=== PATIENT | female | born 1985 | race Caucasian/White ===

== ENCOUNTER 2017-12-23 09:40 | Emergency (ER) | payer MEDICARE, MEDICAID ==
[~2017-12-23] VITALS: Ht 167.6 cm; Wt 89.0 kg
[~2017-12-23 09:40] MED LIST: ACET-2119 PO; CLIN-80 PO; NOTE; ONDA4TAB6 PO; ONDA8TAB9 PO
[2017-12-23 09:46] VITALS: BP 130/74
[2017-12-23] MEDS ORDERED: LIDOcaine 1.5% w/epinephrine 1:200,000 5ml ampul IJ ONE (11:00)
== END 2017-12-23 11:13 | disposition left against medical advice (07) ==
LOC: ER 09:41
DX: L02.11 Cutaneous abscess of neck (principal); K21.9 Gastro-esophageal reflux disease without esophagitis; G89.29 Other chronic pain; F12.10 Cannabis abuse, uncomplicated; F15.10 Other stimulant abuse, uncomplicated; Z98.890 Other specified postprocedural states; Z79.899 Other long term (current) drug therapy
CPT/HCPCS: 99284; A6449; J3490

== ENCOUNTER 2018-03-19 23:27 | Emergency (ER) | payer MEDICARE, MEDICAID ==
[~2018-03-19] VITALS: Ht 167.6 cm; Wt 86.0 kg
[~2018-03-19 23:27] MED LIST changes: -CLIN-80 PO; +CLIN300C85 PO
[2018-03-19 23:31] VITALS: BP 140/119
[2018-03-19] MEDS ORDERED: ketorolac tromethamine 15mg/ml inj. IM ONE (23:55)
[2018-03-19] MEDS ORDERED: ondansetron 4mg rapidly disintigrating tab PO ONE (23:55)
[2018-03-19] MEDS ORDERED: morphine 4 MG/ML inj SYRINge IM ONE (23:55)
[2018-03-20] MEDS ORDERED: HYDR-3965 PO (00:38)
[2018-03-20] MEDS ORDERED: IBUP-1986 PO (00:38)
== END 2018-03-20 01:47 | disposition home or self-care (01) ==
LOC: ER 23:27
DX: S43.102A Unspecified dislocation of left acromioclavicular joint, initial encounter (principal); S40.012A Contusion of left shoulder, initial encounter; F15.10 Other stimulant abuse, uncomplicated; I49.9 Cardiac arrhythmia, unspecified; K21.9 Gastro-esophageal reflux disease without esophagitis; G89.29 Other chronic pain; F12.90 Cannabis use, unspecified, uncomplicated; Z86.14 Personal history of Methicillin resistant Staphylococcus aureus infection; Z98.890 Other specified postprocedural states; Z88.6 Allergy status to analgesic agent; Z79.899 Other long term (current) drug therapy; V18.4XXA Pedal cycle driver injured in noncollision transport accident in traffic accident, initial encounter; Y93.89 Activity, other specified; Y92.89 Other specified places as the place of occurrence of the external cause; Y99.8 Other external cause status
CPT/HCPCS: 71046; 73030; 96372; 99284; A4565; J1885; J2270; 29105

== ENCOUNTER 2018-10-22 00:40 | Emergency (ER) | payer MEDICAID, MEDICARE, OTHER ==
[~2018-10-22] VITALS: Ht 167.6 cm; Wt 90.9 kg
[~2018-10-22 00:40] MED LIST changes: +CLIN-96 PO; -CLIN300C85 PO; +IBUP-1986 PO
[2018-10-22 00:43] VITALS: BP 140/102
[2018-10-22] MEDS ORDERED: TETanus/Pertussis (Acell)/Diphther VAC/PF (Tdap-Adult) 0.5ml syringe IM ONE (01:05)
[2018-10-22] MEDS ORDERED: LIDOcaine 1% w/epiNEPHrine 1:200,000 30ml vial IM ONE (01:05)
[2018-10-22] MEDS ORDERED: cephalexin 250mg capsule PO ONE (03:05)
== END 2018-10-22 03:28 ==
LOC: ER 01:45
DX: S51.812A Laceration without foreign body of left forearm, initial encounter (principal); I49.9 Cardiac arrhythmia, unspecified; K21.9 Gastro-esophageal reflux disease without esophagitis; G89.29 Other chronic pain; Z86.14 Personal history of Methicillin resistant Staphylococcus aureus infection; Z98.890 Other specified postprocedural states; Z88.6 Allergy status to analgesic agent; Z79.899 Other long term (current) drug therapy; Y28.8XXA Contact with other sharp object, undetermined intent, initial encounter; Y93.89 Activity, other specified; Y92.89 Other specified places as the place of occurrence of the external cause; Y99.8 Other external cause status
CPT/HCPCS: 12004; 99283; J3490

== ENCOUNTER 2018-11-22 00:07 | Inpatient (IN) | payer OTHER ==
[~2018-11-22] VITALS: Ht 167.6 cm; Wt 90.9 kg
--- NOTE | 2018-11-22 01:00 | NUR ---
CALL TO POISON CONTROL CONCERNING INGESTED BATTERY. PER POISON CONTROL. "ONLY CONCERN WILL BE OBSTRUCTION." NOT THE CONTENTS OF BATTERY. DR BONNER AND DR. ROBERTS INFORMED.
[2018-11-22] MEDS ORDERED: TETanus/Pertussis (Acell)/Diphther VAC/PF (Tdap-Adult) 0.5ml syringe IM ONE (01:30)
[2018-11-22] MEDS ORDERED: LIDOcaine 1% w/epiNEPHrine 1:200,000 30ml vial IM ONE (01:30)
[2018-11-22] MEDS ORDERED: ondansetron/PF 4mg/2ml inj IV PRN (01:40)
[2018-11-22] MEDS ORDERED: acetaminophen 325mg tablet PO PRN ×2 (01:40→12:15)
[2018-11-22] MEDS ORDERED: mag hydrox/Alum hydrox/simeth 30ml oral suspension PO PRN (01:40)
[2018-11-22] MEDS ORDERED: magnesium hydroxide 30ml (MOM) UD suspension PO PRN (01:40)
[2018-11-22 01:49] LABS: CLARITY,URINE CLEAR (Clear); COLOR,URINE YELLOW (Yellow); GLUCOSE, URINE NEGATIVE (Neg); KETONES,URINE NEGATIVE (Neg); LEUKOCYTE ESTERASE ,URINE NEGATIVE (Neg); NITRITES, URINE NEGATIVE (Neg); OCCULT BLOOD,URINE NEGATIVE (Neg); PH,URINE 6.5 (4.8-8.0); PROTEIN,URINE NEGATIVE (Neg); UROBILINOGEN,URINE 0.2 E.U/dL (0.2-1.0)
[2018-11-22 01:50] LABS: UA COLLECTION TYPE VOIDED
[2018-11-22 01:56] LABS: BASOPHILS # (AUTO) 0.1 X10'3 (0-0.2); BASOPHILS % (AUTO) 1.5 % (0-1); EOSINOPHILS # (AUTO) 0.1 X10'3 (0-0.9); EOSINOPHILS % (AUTO) 1.5 % (0-6); HEMATOCRIT 37.9 % (35.0-45.0); HEMOGLOBIN 12.1 g/dl (12.0-16.0); LYMPHOCYTES # (AUTO) 1.7 X10'3 (1.1-4.8); LYMPHOCYTES % (AUTO) 28.6 % (21-51); MEAN CORPUSCULAR HEMOGLOBIN 25.1 PG (27.0-31.0); MEAN CORPUSCULAR VOLUME 78.6 FL (78-98); MEAN PLATELET VOLUME 8.9 FL (7.4-10.4); MONOCYTES # (AUTO) 0.3 X10'3 (0-0.9); MONOCYTES % (AUTO) 5.5 % (2-12); NEUTROPHILS # (AUTO) 3.7 X10'3 (1.8-7.7); NEUTROPHILS % (AUTO) 62.9 % (42-75); PLATELET COUNT 248 X10'3 (140-440); RED BLOOD COUNT 4.82 X10'6 (4.20-5.60); RED CELL DISTRIBUTION WIDTH 17.7 % (11.5-14.5); WHITE BLOOD COUNT 5.9 X10'3 (4.5-11.0)
[2018-11-22 02:07] LABS: ALANINE AMINOTRANSFERASE 30 U/L (12-78); ALBUMIN 3.9 G/DL (3.4-5.0); ALBUMIN/GLOBULIN RATIO 0.9 (1.1-1.5); ALKALINE PHOSPHATASE 61 IU/L (46-116); ANION GAP 7 (8-16); ASPARTATE AMINO TRANSFERASE 17 U/L (10-37); BILIRUBIN,TOTAL 0.2 MG/DL (0.1-1.0); BLOOD UREA NITROGEN 15 MG/DL (7-18); BUN/CREATININE RATIO 19.2 (6.6-38.0); CALCIUM 9.4 MG/DL (8.5-10.1); CHLORIDE 105 MMOL/L (99-107); CREATININE 0.78 MG/DL (0.40-0.90); GLUCOSE 90 MG/DL (70-104); POTASSIUM 4.1 MMOL/L (3.5-5.1); SODIUM 139 MMOL/L (135-145); TOTAL CARBON DIOXIDE 26.8 MMOL/L (24-32); TOTAL PROTEIN 8.1 G/DL (6.4-8.2); eGFR 85 ML/MIN
[2018-11-22 02:09] LABS: PARTIAL THROMBOPLASTIN TIME 23 SECONDS (22-32); PROTHROMBIN TIME 10.2 SECONDS (9.0-12.0)
[2018-11-22] MEDS: mag hydrox/Alum hydrox/simeth 30ml oral suspension PO SCH ×4 (02:18→21:24)
--- NOTE | 2018-11-22 02:19 | NUR ---
tETANUS NOT ADMINISTERED; PT REPORTS VACCINATION WITHIN PAST 2 MONTHS.
--- NOTE | 2018-11-22 03:01 | NUR ---
Dr Adam engaged in laceration suture/repair. GEETA Li (#[id number]) bedside. pT PARTIALLY HAND CUFFED.
--- NOTE | 2018-11-22 04:30 | NUR ---
received report from adrian valle rn. pt to floor via wheelchair accompanied by adrian and 2 security guards. tele put on pt. water given. pt. handcuffed to bed. will continue to monitor.
[2018-11-22 04:34] VITALS: BP 121/84
--- NOTE | 2018-11-22 06:20 | NUR ---
Problems reprioritized. Patient report given, questions answered & plan of care reviewed with INNA Pena. Addendum: 11/22/18 at 0620 by Cassie Das RN Amended: Links added.
[2018-11-22 07:00] VITALS: BP 119/70
--- NOTE | 2018-11-22 07:00 | NUR ---
Patient in room [facility]. I have received report from Cassie and had the opportunity to ask questions and assume patient care. Addendum: 11/22/18 at 0923 by Becky Montiel RN Amended: Links added.
[2018-11-22] MEDS: famotidine 20mg tablet PO SCH ×2 (07:28→21:23)
[2018-11-22] MEDS: enoxaparin 40mg/0.4ml syringe SQ SCH (07:29)
[2018-11-22 12:00] VITALS: BP 115/70
[2018-11-22] MEDS ORDERED: OLAN10TA3 PO (12:03)
[2018-11-22] MEDS ORDERED: OLAN5TAB3 PO (12:03)
[2018-11-22] MEDS ORDERED: BUSP10TA11 PO ×2 (12:03)
[2018-11-22] MEDS ORDERED: PARO-62 PO (12:05)
[2018-11-22] MEDS ORDERED: TRAZ-219 PO (12:05)
--- NOTE | 2018-11-22 18:28 | NUR ---
Report to INNA Marrufo.
[2018-11-22] MEDS: traMADol 50MG tablet PO PRN (18:59)
[2018-11-22 19:00] VITALS: BP 118/60
[2018-11-22] MEDS: ibuprofen tablet 400 MG TABLET PO PRN (21:22)
[2018-11-22] MEDS: traZODone 50mg tablet PO SCH (21:24)
[2018-11-22] MEDS: olanzapine 10mg tablet PO SCH (21:24)
[2018-11-22] MEDS: busPIRone 5mg tablet PO SCH (21:24)
[2018-11-23] VITALS: BP 97/54
[2018-11-23] MEDS: mag hydrox/Alum hydrox/simeth 30ml oral suspension PO SCH ×4 (01:34→20:22)
[2018-11-23] MEDS: traMADol 50MG tablet PO PRN (01:35)
--- NOTE | 2018-11-23 06:20 | NUR ---
Patient in room [facility]. I have received report from INNA Marrufo and had the opportunity to ask questions and assume patient care.
[2018-11-23 07:30] VITALS: BP 108/48
[2018-11-23] MEDS: famotidine 20mg tablet PO SCH ×2 (08:01→20:22)
[2018-11-23] MEDS: OLANZAPINE 5 MG TABLET PO SCH (08:01)
[2018-11-23] MEDS: PARoxetine 20mg tablet PO SCH (08:02)
[2018-11-23] MEDS: busPIRone 5mg tablet PO SCH ×2 (08:02→20:22)
[2018-11-23] MEDS: enoxaparin 40mg/0.4ml syringe SQ SCH (08:02)
[2018-11-23] MEDS: ibuprofen tablet 400 MG TABLET PO PRN (08:11)
[2018-11-23 12:00] VITALS: BP 104/43
[2018-11-23] MEDS ORDERED: magnesium hydroxide 30ml (MOM) UD suspension PO ONE (12:05)
--- NOTE | 2018-11-23 18:58 | NUR ---
Problems reprioritized. Patient report given, questions answered & plan of care reviewed with INNA Boothe.
--- NOTE | 2018-11-23 18:59 | NUR ---
Patient in room [facility]. I have received report from ERIN KEITH and had the opportunity to ask questions and assume patient care.
[2018-11-23 20:00] VITALS: BP 115/56
[2018-11-23] MEDS: traZODone 50mg tablet PO SCH (20:22)
[2018-11-23] MEDS: olanzapine 10mg tablet PO SCH (20:22)
[2018-11-24] VITALS: BP 104/49
[2018-11-24] MEDS: traMADol 50MG tablet PO PRN (01:49)
[2018-11-24] MEDS: mag hydrox/Alum hydrox/simeth 30ml oral suspension PO SCH ×4 (01:51→21:13)
--- NOTE | 2018-11-24 06:30 | NUR ---
Problems reprioritized. Patient report given, questions answered & plan of care reviewed with GELACIO RN.
--- NOTE | 2018-11-24 06:40 | NUR ---
Patient in room [facility]. I have received report from Paradise Ghotra RN and had the opportunity to ask questions and assume patient care.
[2018-11-24] MEDS: PARoxetine 20mg tablet PO SCH (07:59)
[2018-11-24] MEDS: famotidine 20mg tablet PO SCH ×2 (07:59→21:12)
[2018-11-24] MEDS: OLANZAPINE 5 MG TABLET PO SCH (07:59)
[2018-11-24] MEDS: enoxaparin 40mg/0.4ml syringe SQ SCH (07:59)
[2018-11-24] MEDS: busPIRone 5mg tablet PO SCH ×2 (07:59→21:11)
[2018-11-24 08:00] VITALS: BP 99/54
[2018-11-24] MEDS: ibuprofen tablet 400 MG TABLET PO PRN (09:00)
[2018-11-24] MEDS ORDERED: lactulose 20gm/30ml cup PO ONE (10:40)
[2018-11-24 10:43] LABS: BASOPHILS # (AUTO) 0.1 X10'3 (0-0.2); BASOPHILS % (AUTO) 1.2 % (0-1); EOSINOPHILS # (AUTO) 0.1 X10'3 (0-0.9); EOSINOPHILS % (AUTO) 2.1 % (0-6); HEMATOCRIT 34.5 % (35.0-45.0); LYMPHOCYTES # (AUTO) 1.6 X10'3 (1.1-4.8); LYMPHOCYTES % (AUTO) 27.3 % (21-51); MEAN CORPUSCULAR HGB CONC 31.8 g/dL (33.0-36.5); MEAN CORPUSCULAR VOLUME 78.8 FL (78-98); MEAN PLATELET VOLUME 9.1 FL (7.4-10.4); MONOCYTES # (AUTO) 0.5 X10'3 (0-0.9); MONOCYTES % (AUTO) 8.2 % (2-12); NEUTROPHILS # (AUTO) 3.5 X10'3 (1.8-7.7); NEUTROPHILS % (AUTO) 61.2 % (42-75); PLATELET COUNT 200 X10'3 (140-440); RED BLOOD COUNT 4.39 X10'6 (4.20-5.60); RED CELL DISTRIBUTION WIDTH 17.6 % (11.5-14.5); WHITE BLOOD COUNT 5.7 X10'3 (4.5-11.0)
[2018-11-24 10:48] LABS: ANION GAP 3 (8-16); BLOOD UREA NITROGEN 34 MG/DL (7-18); BUN/CREATININE RATIO 43.6 (6.6-38.0); CALCIUM 9.1 MG/DL (8.5-10.1); CHLORIDE 106 MMOL/L (99-107); CREATININE 0.78 MG/DL (0.40-0.90); GLUCOSE 98 MG/DL (70-104); POTASSIUM 4.1 MMOL/L (3.5-5.1); SODIUM 137 MMOL/L (135-145); TOTAL CARBON DIOXIDE 28.3 MMOL/L (24-32); eGFR 85 ML/MIN
[2018-11-24 12:00] VITALS: BP 113/63
--- NOTE | 2018-11-24 18:28 | NUR ---
Problems reprioritized. Patient report given, questions answered & plan of care reviewed with Paradise Ghotra RN.
--- NOTE | 2018-11-24 18:30 | NUR ---
Patient in room [facility]. I have received report from GELACIO KEITH and had the opportunity to ask questions and assume patient care.
[2018-11-24 20:00] VITALS: BP 118/64
[2018-11-24] MEDS: olanzapine 10mg tablet PO SCH (21:11)
[2018-11-24] MEDS: traZODone 50mg tablet PO SCH (21:11)
[2018-11-24] MEDS: lactulose 20gm/30ml cup PO SCH (22:32)
[2018-11-25] VITALS: BP 118/70
[2018-11-25] MEDS: lactulose 20gm/30ml cup PO SCH ×4 (02:01→22:09)
[2018-11-25] MEDS: mag hydrox/Alum hydrox/simeth 30ml oral suspension PO SCH ×4 (02:01→22:06)
[2018-11-25] MEDS: traMADol 50MG tablet PO PRN (02:06)
--- NOTE | 2018-11-25 06:20 | NUR ---
Patient in room [facility]. I have received report from Paradise Ghotra RN and had the opportunity to ask questions and assume patient care.
[2018-11-25 06:30] VITALS: BP 108/53
--- NOTE | 2018-11-25 06:30 | NUR ---
Problems reprioritized. Patient report given, questions answered & plan of care reviewed with MAGGIE RN.
[2018-11-25] MEDS: busPIRone 5mg tablet PO SCH ×2 (08:21→22:05)
[2018-11-25] MEDS: OLANZAPINE 5 MG TABLET PO SCH (08:22)
[2018-11-25] MEDS: PARoxetine 20mg tablet PO SCH (08:22)
[2018-11-25] MEDS: enoxaparin 40mg/0.4ml syringe SQ SCH (08:22)
[2018-11-25] MEDS: famotidine 20mg tablet PO SCH ×2 (08:22→22:05)
[2018-11-25 11:00] VITALS: BP 106/58
--- NOTE | 2018-11-25 18:10 | NUR ---
Problems reprioritized. Patient report given, questions answered & plan of care reviewed with Paradise Ghotra RN.
--- NOTE | 2018-11-25 18:30 | NUR ---
Patient in room [facility]. I have received report from MAGGIE KEITH and had the opportunity to ask questions and assume patient care.
[2018-11-25 20:00] VITALS: BP 140/65
[2018-11-25] MEDS: traZODone 50mg tablet PO SCH (22:05)
[2018-11-25] MEDS: olanzapine 10mg tablet PO SCH (22:05)
[2018-11-26] VITALS: BP 122/70
[2018-11-26] MEDS: mag hydrox/Alum hydrox/simeth 30ml oral suspension PO SCH ×3 (01:57→14:00)
[2018-11-26] MEDS: ibuprofen tablet 400 MG TABLET PO PRN (01:58)
[2018-11-26] MEDS: lactulose 20gm/30ml cup PO SCH ×3 (02:00→14:00)
--- NOTE | 2018-11-26 06:10 | NUR ---
Patient in room [facility]. I have received report from Paradise Ghotra RN and had the opportunity to ask questions and assume patient care.
--- NOTE | 2018-11-26 06:15 | NUR ---
Problems reprioritized. Patient report given, questions answered & plan of care reviewed with MYKE KEITH.
[2018-11-26 06:30] VITALS: BP 114/71
[2018-11-26] MEDS: busPIRone 5mg tablet PO SCH (08:31)
[2018-11-26] MEDS: PARoxetine 20mg tablet PO SCH (08:32)
[2018-11-26] MEDS: enoxaparin 40mg/0.4ml syringe SQ SCH (08:32)
[2018-11-26] MEDS: famotidine 20mg tablet PO SCH (08:32)
[2018-11-26] MEDS: OLANZAPINE 5 MG TABLET PO SCH (08:32)
[2018-11-26 11:30] VITALS: BP 109/55
[2018-11-26] MEDS ORDERED: CIPR-230 PO (14:27)
[2018-11-26] MEDS ORDERED: METR-159 PO (14:27)
--- NOTE | 2018-11-26 14:45 | NUR ---
BROOKS completed. Awaiting police officers for transport back to [facility] residential.
--- NOTE | 2018-11-26 15:35 | NUR ---
DC inst provided to pt. IV DC'd, tip intact. All belongings sent w/pt. [employer] records management officer & guard escorted pt out of hospital w/pt shackled.
== END 2018-11-26 15:35 | DRG 395 ==
LOC: ER 00:08 → OBSVTOIN 01:39 → ED HOLD 01:39 → EEVIPCON 01:39 → SUR 3N 04:15 → UNDODISIN 11-26 15:35
PROVIDERS: ADMIT Family Medicine; ATTEND Family Medicine
PROC: 0HQEXZZ Repair Left Lower Arm Skin, External Approach (ICD-10-PCS; principal; 2018-11-22)
PROC: 0HQEXZZ Repair Left Lower Arm Skin, External Approach (ICD-10-PCS; 2018-11-22)
DX: T18.9XXA Foreign body of alimentary tract, part unspecified, initial encounter (principal); F25.9 Schizoaffective disorder, unspecified; F31.9 Bipolar disorder, unspecified; K21.9 Gastro-esophageal reflux disease without esophagitis; K52.9 Noninfective gastroenteritis and colitis, unspecified; F41.9 Anxiety disorder, unspecified; G89.29 Other chronic pain; M54.9 Dorsalgia, unspecified; F17.210 Nicotine dependence, cigarettes, uncomplicated; S51.012A Laceration without foreign body of left elbow, initial encounter; S51.812A Laceration without foreign body of left forearm, initial encounter; X83.8XXA Intentional self-harm by other specified means, initial encounter; Y93.89 Activity, other specified; Y92.89 Other specified places as the place of occurrence of the external cause; Y99.8 Other external cause status; Z88.6 Allergy status to analgesic agent; Z87.440 Personal history of urinary (tract) infections; Z79.899 Other long term (current) drug therapy
CPT/HCPCS: 12004; 36415; 71045; 74018; 74176; 80048; 80053; 81003; 85025; 85610; 85730; 86885; 86900; 86901; 87070; 93005; 99285; G0378; J1650; J3490

== ENCOUNTER 2019-04-04 22:40 | Emergency (ER) | payer OTHER ==
[~2019-04-04] VITALS: Ht 167.6 cm; Wt 100.0 kg
[~2019-04-04 22:40] MED LIST changes: +BUSP10TA11 PO; -CLIN-96 PO; -NOTE; +OLAN10TA3 PO; +OLAN5TAB3 PO; -ONDA4TAB6 PO; -ONDA8TAB9 PO; +PARO-62 PO; +TRAZ-219 PO
--- NOTE | 2019-04-04 22:55 | NUR ---
Contacted poison control, recommendations: CBC, CMP, TYLENOL, ASPIRIN,ETOH, TOX SCREEN. KUB to identify location of batteries, recommend removal of batteries if they are in the stomach or above.
[2019-04-04] MEDS ORDERED: LIDOcaine 1% w/epiNEPHrine 1:200,000 30ml vial IM ONE (23:15)
--- NOTE | 2019-04-04 23:44 | NUR ---
Wound irrigated with 500ml NS per order after administration of local anethetic by Bartolo RIDLEY
[2019-04-04 23:45] LABS: BASOPHILS # (AUTO) 0.1 X10'3 (0-0.2); BASOPHILS % (AUTO) 1.2 % (0-1); EOSINOPHILS % (AUTO) 0.7 % (0-6); HEMOGLOBIN 12.7 g/dl (12.0-16.0); LYMPHOCYTES # (AUTO) 1.2 X10'3 (1.1-4.8); LYMPHOCYTES % (AUTO) 19.3 % (21-51); MEAN CORPUSCULAR HEMOGLOBIN 27.3 PG (27.0-31.0); MEAN CORPUSCULAR HGB CONC 33.6 g/dL (33.0-36.5); MEAN CORPUSCULAR VOLUME 81.4 FL (78-98); MEAN PLATELET VOLUME 8.9 FL (7.4-10.4); MONOCYTES # (AUTO) 0.3 X10'3 (0-0.9); MONOCYTES % (AUTO) 5.3 % (2-12); NEUTROPHILS # (AUTO) 4.7 X10'3 (1.8-7.7); NEUTROPHILS % (AUTO) 73.5 % (42-75); PLATELET COUNT 214 X10'3 (140-440); RED BLOOD COUNT 4.66 X10'6 (4.20-5.60); RED CELL DISTRIBUTION WIDTH 16.4 % (11.5-14.5); WHITE BLOOD COUNT 6.3 X10'3 (4.5-11.0)
[2019-04-04 23:50] LABS: URINE HCG NEGATIVE (NEG)
[2019-04-04 23:53] LABS: CLARITY,URINE CLEAR (Clear); COLOR,URINE YELLOW (Yellow); GLUCOSE, URINE NEGATIVE (Neg); KETONES,URINE NEGATIVE (Neg); LEUKOCYTE ESTERASE ,URINE NEGATIVE (Neg); NITRITES, URINE NEGATIVE (Neg); OCCULT BLOOD,URINE NEGATIVE (Neg); PROTEIN,URINE NEGATIVE (Neg); UROBILINOGEN,URINE 0.2 E.U/dL (0.2-1.0)
[2019-04-04 23:59] LABS: ALANINE AMINOTRANSFERASE 20 U/L (12-78); ALBUMIN 3.6 G/DL (3.4-5.0); ALBUMIN/GLOBULIN RATIO 0.8 (1.1-1.5); ALKALINE PHOSPHATASE 57 IU/L (46-116); ANION GAP 10 (8-16); ASPARTATE AMINO TRANSFERASE 7 U/L (10-37); BILIRUBIN,TOTAL 0.2 MG/DL (0.1-1.0); BLOOD UREA NITROGEN 22 MG/DL (7-18); BUN/CREATININE RATIO 24.2 (6.6-38.0); CHLORIDE 108 MMOL/L (99-107); CREATININE 0.91 MG/DL (0.40-0.90); ETHANOL < 0.010 GM/DL (0.0-0.010); GLUCOSE 105 MG/DL (70-104); POTASSIUM 4.2 MMOL/L (3.5-5.1); SODIUM 142 MMOL/L (135-145); TOTAL CARBON DIOXIDE 24.4 MMOL/L (24-32); TOTAL PROTEIN 7.9 G/DL (6.4-8.2); eGFR 71 ML/MIN
[2019-04-04 23:59] LABS: UA COLLECTION TYPE CLN CATCH MIDSTREAM
[2019-04-05 00:02] LABS: ACETAMINOPHEN < 2.0 UG/ML (10-30)
[2019-04-05 00:11] LABS: URINE AMPHETAMINE SCREEN NEGATIVE (Neg); URINE BARBITUATE SCREEN NEGATIVE (Neg); URINE BENZODIAZEPINES SCREEN NEGATIVE (Neg); URINE CANNABINOID SCREEN NEGATIVE (Neg); URINE COCAINE SCREEN NEGATIVE (Neg); URINE METHADONE SCREEN NEGATIVE (Neg); URINE OPIATE SCREEN NEGATIVE (Neg); URINE PHENCYCLIDINE SCREEN NEGATIVE (Neg)
[2019-04-05 00:47] VITALS: BP 111/72
--- NOTE | 2019-04-05 01:04 | NUR ---
peter hicks talking to pt and amanda. pt with stable vs and told Dr. Díaz was consulted, GI, and recommends no intervention and recommends Pt to pass the items on her own.
== END 2019-04-05 01:24 ==
LOC: ER 22:41
DX: S51.812A Laceration without foreign body of left forearm, initial encounter (principal); T18.2XXA Foreign body in stomach, initial encounter; K21.9 Gastro-esophageal reflux disease without esophagitis; G89.29 Other chronic pain; F41.9 Anxiety disorder, unspecified; F31.9 Bipolar disorder, unspecified; F20.9 Schizophrenia, unspecified; F12.90 Cannabis use, unspecified, uncomplicated; F15.90 Other stimulant use, unspecified, uncomplicated; Z98.890 Other specified postprocedural states; Z88.6 Allergy status to analgesic agent; Z79.899 Other long term (current) drug therapy; X78.9XXA Intentional self-harm by unspecified sharp object, initial encounter; Y93.89 Activity, other specified; Y92.89 Other specified places as the place of occurrence of the external cause; Y99.9 Unspecified external cause status
CPT/HCPCS: 12002; 36415; 74018; 80053; 80305; 80320; 80329; 81003; 81025; 85025; 99284

== ENCOUNTER 2019-05-19 02:58 | Emergency (ER) | payer OTHER ==
[~2019-05-19] VITALS: Ht 167.6 cm; Wt 100.0 kg
[2019-05-19] MEDS ORDERED: ondansetron/PF 4mg/2ml inj IV ONE (03:20)
[2019-05-19] MEDS ORDERED: ketorolac trometh. 30mg/ml inj. IV ONE (03:20)
[2019-05-19] MEDS ORDERED: normal saline 1000ml 1,000 ML IV ONE (03:40)
[2019-05-19 03:43] LABS: BASOPHILS # (AUTO) 0.1 X10'3 (0-0.2); BASOPHILS % (AUTO) 1.1 % (0-1); EOSINOPHILS # (AUTO) 0.1 X10'3 (0-0.9); EOSINOPHILS % (AUTO) 1.1 % (0-6); HEMATOCRIT 35.8 % (35.0-45.0); HEMOGLOBIN 11.8 g/dl (12.0-16.0); LYMPHOCYTES # (AUTO) 1.6 X10'3 (1.1-4.8); MEAN CORPUSCULAR HGB CONC 32.9 g/dL (33.0-36.5); MEAN CORPUSCULAR VOLUME 82.1 FL (78-98); MEAN PLATELET VOLUME 9.2 FL (7.4-10.4); MONOCYTES # (AUTO) 0.6 X10'3 (0-0.9); MONOCYTES % (AUTO) 10.5 % (2-12); NEUTROPHILS # (AUTO) 3.5 X10'3 (1.8-7.7); NEUTROPHILS % (AUTO) 60.3 % (42-75); PLATELET COUNT 199 X10'3 (140-440); RED BLOOD COUNT 4.36 X10'6 (4.20-5.60); RED CELL DISTRIBUTION WIDTH 16.4 % (11.5-14.5); WHITE BLOOD COUNT 5.8 X10'3 (4.5-11.0)
[2019-05-19 03:58] LABS: ALANINE AMINOTRANSFERASE 18 U/L (12-78); ALBUMIN 3.8 G/DL (3.4-5.0); ALBUMIN/GLOBULIN RATIO 0.9 (1.1-1.5); ALKALINE PHOSPHATASE 67 IU/L (46-116); ANION GAP 10 (8-16); ASPARTATE AMINO TRANSFERASE 12 U/L (10-37); BILIRUBIN,TOTAL 0.5 MG/DL (0.1-1.0); BLOOD UREA NITROGEN 15 MG/DL (7-18); BUN/CREATININE RATIO 17.2 (6.6-38.0); CHLORIDE 105 MMOL/L (99-107); CREATININE 0.87 MG/DL (0.40-0.90); GLUCOSE 96 MG/DL (70-104); LIPASE 72 U/L (73-393); POTASSIUM 3.4 MMOL/L (3.5-5.1); SODIUM 140 MMOL/L (135-145); TOTAL CARBON DIOXIDE 24.9 MMOL/L (24-32); TOTAL PROTEIN 8.2 G/DL (6.4-8.2); eGFR 75 ML/MIN
[2019-05-19] MEDS ORDERED: iohexol 300mg/ml 100ml inj. ONE (04:29)
[2019-05-19 04:56] LABS: URINE HCG NEGATIVE (NEG)
[2019-05-19 05:00] LABS: CLARITY,URINE CLEAR (Clear); COLOR,URINE YELLOW (Yellow); GLUCOSE, URINE NEGATIVE (Neg); KETONES,URINE TRACE mg/dl (Neg); LEUKOCYTE ESTERASE ,URINE NEGATIVE (Neg); NITRITES, URINE NEGATIVE (Neg); OCCULT BLOOD,URINE NEGATIVE (Neg); PROTEIN,URINE NEGATIVE (Neg); UA COLLECTION TYPE VOIDED; UROBILINOGEN,URINE 0.2 E.U/dL (0.2-1.0)
[2019-05-19 05:08] LABS: URINE AMPHETAMINE SCREEN POSITIVE (Neg); URINE BARBITUATE SCREEN NEGATIVE (Neg); URINE BENZODIAZEPINES SCREEN NEGATIVE (Neg); URINE CANNABINOID SCREEN NEGATIVE (Neg); URINE COCAINE SCREEN NEGATIVE (Neg); URINE METHADONE SCREEN NEGATIVE (Neg); URINE OPIATE SCREEN NEGATIVE (Neg); URINE PHENCYCLIDINE SCREEN NEGATIVE (Neg)
[2019-05-19] MEDS ORDERED: acetaminophen 325mg tablet PO ONE (05:20)
[2019-05-19 05:44] VITALS: BP 144/76
== END 2019-05-19 06:00 ==
LOC: ER 03:00
DX: R10.31 Right lower quadrant pain (principal); F15.929 Other stimulant use, unspecified with intoxication, unspecified; K21.9 Gastro-esophageal reflux disease without esophagitis; G89.29 Other chronic pain; F12.90 Cannabis use, unspecified, uncomplicated; Z98.890 Other specified postprocedural states; Z88.6 Allergy status to analgesic agent; Z79.899 Other long term (current) drug therapy
CPT/HCPCS: 36415; 74177; 80053; 80305; 81003; 81025; 83690; 85025; 85610; 96374; 96375; 99284; J1885; J2405; J7030; Q9967

== ENCOUNTER 2019-07-13 13:10 | Emergency (ER) | payer OTHER ==
[~2019-07-13] VITALS: Ht 167.6 cm; Wt 90.9 kg
--- NOTE | 2019-07-13 13:42 | NUR ---
Dr. Adam at bedside.patient has C collar on.
[2019-07-13] MEDS ORDERED: ondansetron 4mg rapidly disintigrating tab PO ONE (14:00)
--- NOTE | 2019-07-13 14:16 | NUR ---
PATIENT TO CT.
[2019-07-13 14:49] VITALS: BP 128/71
== END 2019-07-13 14:52 ==
LOC: EEVIPCON 13:10 → ER 13:10
DX: S00.03XA Contusion of scalp, initial encounter (principal); M79.641 Pain in right hand; K21.9 Gastro-esophageal reflux disease without esophagitis; G89.29 Other chronic pain; F41.9 Anxiety disorder, unspecified; F31.9 Bipolar disorder, unspecified; F20.9 Schizophrenia, unspecified; F12.90 Cannabis use, unspecified, uncomplicated; F15.90 Other stimulant use, unspecified, uncomplicated; Z98.890 Other specified postprocedural states; Z86.14 Personal history of Methicillin resistant Staphylococcus aureus infection; Z88.6 Allergy status to analgesic agent; Z79.899 Other long term (current) drug therapy; W01.10XA Fall on same level from slipping, tripping and stumbling with subsequent striking against unspecified object, initial encounter; Y93.89 Activity, other specified; Y92.143 Cell of prison as the place of occurrence of the external cause; Y99.8 Other external cause status
CPT/HCPCS: 70450; 73130; 99284

== ENCOUNTER 2019-08-02 20:03 | Emergency (ER) | payer OTHER ==
[~2019-08-02] VITALS: Ht 167.6 cm; Wt 90.9 kg
[~2019-08-02 20:03] MED LIST changes: +LIDOcaine 1% W/epiNEPHrine 1:100,000 20ml vial ONE
[2019-08-02 20:06] VITALS: BP 148/90
[2019-08-02] MEDS ORDERED: bacitracin 15gm ointment TP ONE (21:10)
== END 2019-08-02 21:25 ==
LOC: ER 20:04
DX: S51.812A Laceration without foreign body of left forearm, initial encounter (principal); K21.9 Gastro-esophageal reflux disease without esophagitis; G89.29 Other chronic pain; F41.9 Anxiety disorder, unspecified; F31.9 Bipolar disorder, unspecified; F20.9 Schizophrenia, unspecified; F12.90 Cannabis use, unspecified, uncomplicated; F15.90 Other stimulant use, unspecified, uncomplicated; Z98.890 Other specified postprocedural states; Z88.6 Allergy status to analgesic agent; Z79.899 Other long term (current) drug therapy; W26.8XXA Contact with other sharp object(s), not elsewhere classified, initial encounter; Y93.89 Activity, other specified; Y92.89 Other specified places as the place of occurrence of the external cause; Y99.8 Other external cause status
CPT/HCPCS: 12004; 99283

== ENCOUNTER 2020-09-06 22:16 | Emergency (ER) | payer MEDICARE, MEDICAID ==
[~2020-09-06] VITALS: Ht 167.6 cm; Wt 99.0 kg
[~2020-09-06 22:16] MED LIST changes: -LIDOcaine 1% W/epiNEPHrine 1:100,000 20ml vial ONE; -TRAZ-219 PO; +TRAZ-256 PO
--- NOTE | 2020-09-06 22:48 | NUR ---
PT STATES HER SODA COULD HAVE BEEN TAMPERED WITH AT ANY OF THE AT LEAST SEVERAL PLACES SHE'D BEEN IN [place] TODAY, STATES SHE'D HAD THE SAME SODA SINCE "THIS MORNING". CHERYL WAS CALLED BY RN TO REPORT INCIDENT, WILL ASK OFFICER TO FOLLOW UP. PER CHERYL, OFFICER SPOKE WITH PT EARLIER IN THE DAY REGARDING SAME INCIDENT/COMPLAINT
--- NOTE | 2020-09-06 22:53 | NUR ---
Call out made to [place] [facility] re pt's case. PC agent Candice Hussein recommends CMP, THOMAS, Serum Osmolarity. made aware of these recommnedations. MD to evaluate the need for such upon examination of pt.
--- NOTE | 2020-09-06 22:59 | NUR ---
[employer] OFFICER CALLED TO FOLLOW UP ON PT'S C/O, HAD CONTACTED HER EARLIER AND DETERMINED PT'S CLAIMS TO BE UNFOUNDED. PT DENIED TO MD HAVING CALLED POLICE TODAY. [facility] LOG #[id number], PER RESPONDING OFFICER
[2020-09-06 23:18] LABS: URINE HCG NEGATIVE (NEG)
[2020-09-06 23:32] LABS: URINE AMPHETAMINE SCREEN POSITIVE (Neg); URINE BARBITUATE SCREEN NEGATIVE (Neg); URINE BENZODIAZEPINES SCREEN NEGATIVE (Neg); URINE CANNABINOID SCREEN POSITIVE (Neg); URINE COCAINE SCREEN POSITIVE (Neg); URINE METHADONE SCREEN NEGATIVE (Neg); URINE OPIATE SCREEN NEGATIVE (Neg); URINE PHENCYCLIDINE SCREEN NEGATIVE (Neg)
[2020-09-06 23:55] LABS: BASOPHILS % (AUTO) 0.7 % (0-1); EOSINOPHILS # (AUTO) 0.1 X10'3 (0-0.9); EOSINOPHILS % (AUTO) 0.8 % (0-6); HEMATOCRIT 39.1 % (35.0-45.0); HEMOGLOBIN 12.9 g/dl (12.0-16.0); LYMPHOCYTES # (AUTO) 1.2 X10'3 (1.1-4.8); LYMPHOCYTES % (AUTO) 17.6 % (21-51); MEAN CORPUSCULAR HEMOGLOBIN 26.6 PG (27.0-31.0); MEAN CORPUSCULAR HGB CONC 32.9 g/dL (33.0-36.5); MEAN CORPUSCULAR VOLUME 80.8 FL (78-98); MEAN PLATELET VOLUME 8.2 FL (7.4-10.4); MONOCYTES # (AUTO) 0.5 X10'3 (0-0.9); MONOCYTES % (AUTO) 6.8 % (2-12); NEUTROPHILS % (AUTO) 74.1 % (42-75); PLATELET COUNT 264 X10'3 (140-440); RED BLOOD COUNT 4.84 X10'6 (4.20-5.60); RED CELL DISTRIBUTION WIDTH 16.3 % (11.5-14.5); WHITE BLOOD COUNT 6.8 X10'3 (4.5-11.0)
[2020-09-07 00:19] LABS: OSMOLALITY 287 MOSM/K (280-300)
[2020-09-07 00:20] LABS: ACETAMINOPHEN < 2.0 UG/ML (10-30)
[2020-09-07 00:21] LABS: ETHANOL < 0.010 GM/DL (0.0-0.010)
[2020-09-07 00:22] LABS: ALANINE AMINOTRANSFERASE 22 U/L (12-78); ALBUMIN 3.6 G/DL (3.4-5.0); ALBUMIN/GLOBULIN RATIO 0.8 (1.1-1.5); ANION GAP 9 (8-16); ASPARTATE AMINO TRANSFERASE 13 U/L (10-37); BILIRUBIN,TOTAL 0.4 MG/DL (0.1-1.0); BLOOD UREA NITROGEN 12 MG/DL (7-18); BUN/CREATININE RATIO 11.3 (6.6-38.0); CALCIUM 9.3 MG/DL (8.5-10.1); CHLORIDE 101 MMOL/L (99-107); CREATININE 1.06 MG/DL (0.40-0.90); GLUCOSE 99 MG/DL (70-104); POTASSIUM 3.4 MMOL/L (3.5-5.1); SODIUM 137 MMOL/L (135-145); TOTAL CARBON DIOXIDE 26.8 MMOL/L (24-32); eGFR 59 ML/MIN
[2020-09-07 00:23] LABS: ALKALINE PHOSPHATASE 82 IU/L (46-116)
[2020-09-07 00:39] VITALS: BP 143/83
== END 2020-09-07 00:53 | disposition home or self-care (01) ==
LOC: ER 22:17
DX: F19.10 Other psychoactive substance abuse, uncomplicated (principal); F15.90 Other stimulant use, unspecified, uncomplicated; R00.0 Tachycardia, unspecified; Z88.6 Allergy status to analgesic agent; Z79.899 Other long term (current) drug therapy
CPT/HCPCS: 36415; 80053; 80305; 80320; 80329; 81025; 83930; 85025; 93005; 99284

== ENCOUNTER 2020-11-25 13:02 | Emergency (ER) | payer MEDICARE, MEDICAID ==
[~2020-11-25] VITALS: Ht 167.6 cm; Wt 100.0 kg
[2020-11-25 13:06] VITALS: BP 132/87
== END 2020-11-25 16:04 | disposition home or self-care (01) ==
LOC: ER 13:02
DX: J20.9 Acute bronchitis, unspecified (principal); Z20.822 Contact with and (suspected) exposure to COVID-19; R05 Cough; R51.9 Headache, unspecified; K21.9 Gastro-esophageal reflux disease without esophagitis; G89.29 Other chronic pain; F41.9 Anxiety disorder, unspecified; F31.9 Bipolar disorder, unspecified; F20.9 Schizophrenia, unspecified; F12.90 Cannabis use, unspecified, uncomplicated; F15.90 Other stimulant use, unspecified, uncomplicated; Z87.440 Personal history of urinary (tract) infections; Z86.14 Personal history of Methicillin resistant Staphylococcus aureus infection; Z98.890 Other specified postprocedural states; Z88.8 Allergy status to other drugs, medicaments and biological substances; Z79.899 Other long term (current) drug therapy
CPT/HCPCS: 87635; 99283; C9803

== ENCOUNTER 2021-04-16 01:49 | Emergency (ER) | payer MEDICARE, MEDICAID ==
[~2021-04-16] VITALS: Ht 167.6 cm; Wt 90.0 kg
[2021-04-16 02:06] VITALS: BP 144/99
[2021-04-16] MEDS ORDERED: LORazepam 1 MG tablet PO ONE (02:45)
[2021-04-16] MEDS ORDERED: SULF1TAB49 PO (02:55)
[2021-04-16] MEDS ORDERED: cephalexin 500mg capsule PO ONE (02:55)
[2021-04-16] MEDS ORDERED: CEPH-585 PO (02:55)
== END 2021-04-16 02:56 | disposition home or self-care (01) ==
LOC: ER 01:49
DX: L03.115 Cellulitis of right lower limb (principal); M79.604 Pain in right leg; K21.9 Gastro-esophageal reflux disease without esophagitis; G89.29 Other chronic pain; F41.9 Anxiety disorder, unspecified; F31.9 Bipolar disorder, unspecified; F20.9 Schizophrenia, unspecified; F12.90 Cannabis use, unspecified, uncomplicated; F15.90 Other stimulant use, unspecified, uncomplicated; Z87.440 Personal history of urinary (tract) infections; Z86.14 Personal history of Methicillin resistant Staphylococcus aureus infection; Z98.890 Other specified postprocedural states; Z88.8 Allergy status to other drugs, medicaments and biological substances; Z79.2 Long term (current) use of antibiotics; Z79.899 Other long term (current) drug therapy
CPT/HCPCS: 71045; 99283; 99284

== ENCOUNTER 2021-08-13 07:12 | Emergency (ER) | payer MEDICARE, MEDICAID ==
[~2021-08-13] VITALS: Ht 167.6 cm; Wt 89.2 kg
[~2021-08-13 07:12] MED LIST changes: -ACET-2119 PO; -IBUP-1986 PO; -OLAN10TA3 PO; -OLAN5TAB3 PO; -PARO-62 PO; -TRAZ-256 PO
[2021-08-13] MEDS ORDERED: naloxone 0.4 mg/ml inj IV ONE (07:35)
--- NOTE | 2021-08-13 08:00 | NUR ---
PT WANTING TO LEAVE IV DC'D FOR FLIGHT RISK PT CONCERNED HER RIDE WILL LEAVE HER
[2021-08-13 08:11] VITALS: BP 130/82
--- NOTE | 2021-08-13 08:15 | NUR ---
PT LEAVING THROUGH AMBULANCE BAY DR AWARE STEADY GAIT LEAVING ED
== END 2021-08-13 08:53 | disposition home or self-care (01) ==
LOC: ER 07:12
DX: T40.1X1A Poisoning by heroin, accidental (unintentional), initial encounter (principal); K21.9 Gastro-esophageal reflux disease without esophagitis; G89.29 Other chronic pain; F41.9 Anxiety disorder, unspecified; F31.9 Bipolar disorder, unspecified; F12.90 Cannabis use, unspecified, uncomplicated; F15.90 Other stimulant use, unspecified, uncomplicated; F11.90 Opioid use, unspecified, uncomplicated; Z87.440 Personal history of urinary (tract) infections; Z86.14 Personal history of Methicillin resistant Staphylococcus aureus infection; Z20.9 Contact with and (suspected) exposure to unspecified communicable disease; Z98.890 Other specified postprocedural states; Z88.8 Allergy status to other drugs, medicaments and biological substances; Z79.899 Other long term (current) drug therapy; Y92.89 Other specified places as the place of occurrence of the external cause
CPT/HCPCS: 96374; 99284; J2310; 99283

== ENCOUNTER 2021-08-23 21:36 | Emergency (ER) | payer MEDICARE, MEDICAID ==
[~2021-08-23] VITALS: Ht 167.6 cm; Wt 90.9 kg
--- NOTE | 2021-08-23 22:00 | NUR ---
PT STATES SHE DOES NOT NEED TO BE SEEN FOR MEDICAL COMPLAINTS BUT STATES SHE IN UNABLE TO FIND ANYWHERE TO GO THAT WILL ALLOW HER TO STAY WITH HER POSITIVE COVID STATUS.
[2021-08-24 00:31] VITALS: BP 137/87
--- NOTE | 2021-08-24 02:20 | NUR ---
PT AWAKE, RESTING ON GURNEY, NO CHANGE
--- NOTE | 2021-08-24 03:42 | NUR ---
WILL CALL FOR [facility] ROOM FOR HOMELESS COVID POSITIVE PATIENTS IN THE AM, NO ONE AVAILABLE UNTIL 8 AM
[2021-08-24] MEDS ORDERED: acetaminophen 325mg tablet PO ONE (09:00)
== END 2021-08-24 09:30 | disposition home or self-care (01) ==
LOC: ER 21:37
DX: U07.1 COVID-19 (principal); J02.9 Acute pharyngitis, unspecified; K21.9 Gastro-esophageal reflux disease without esophagitis; G89.29 Other chronic pain; F12.90 Cannabis use, unspecified, uncomplicated; F15.90 Other stimulant use, unspecified, uncomplicated; F11.90 Opioid use, unspecified, uncomplicated; Z87.440 Personal history of urinary (tract) infections; Z86.14 Personal history of Methicillin resistant Staphylococcus aureus infection; Z98.891 History of uterine scar from previous surgery; Z79.899 Other long term (current) drug therapy; Z88.8 Allergy status to other drugs, medicaments and biological substances
CPT/HCPCS: 99282

== ENCOUNTER 2021-09-25 23:44 | Emergency (ER) | payer MEDICARE, MEDICAID ==
[~2021-09-25] VITALS: Ht 167.6 cm; Wt 84.8 kg
[2021-09-26 01:39] LABS: BASOPHILS # (AUTO) 0.1 X10'3 (0-0.2); BASOPHILS % (AUTO) 1.3 % (0-1); EOSINOPHILS # (AUTO) 0.1 X10'3 (0-0.9); EOSINOPHILS % (AUTO) 1.5 % (0-6); HEMATOCRIT 32.2 % (35.0-45.0); HEMOGLOBIN 10.7 g/dl (12.0-16.0); LYMPHOCYTES # (AUTO) 1.1 X10'3 (1.1-4.8); LYMPHOCYTES % (AUTO) 18.6 % (21-51); MEAN CORPUSCULAR HEMOGLOBIN 26.6 PG (27.0-31.0); MEAN CORPUSCULAR HGB CONC 33.3 g/dL (33.0-36.5); MEAN CORPUSCULAR VOLUME 79.9 FL (78-98); MEAN PLATELET VOLUME 8.1 FL (7.4-10.4); MONOCYTES # (AUTO) 0.4 X10'3 (0-0.9); MONOCYTES % (AUTO) 6.9 % (2-12); NEUTROPHILS # (AUTO) 4.2 X10'3 (1.8-7.7); NEUTROPHILS % (AUTO) 71.7 % (42-75); PLATELET COUNT 260 X10'3 (140-440); RED BLOOD COUNT 4.03 X10'6 (4.20-5.60); RED CELL DISTRIBUTION WIDTH 16.6 % (11.5-14.5); WHITE BLOOD COUNT 5.8 X10'3 (4.5-11.0)
[2021-09-26 02:03] LABS: D-DIMER 0.74 MG/L FEU (0-0.50)
[2021-09-26 02:08] LABS: ALBUMIN 3.4 G/DL (3.4-5.0); ANION GAP 8 (8-16); BLOOD UREA NITROGEN 17 MG/DL (7-18); BUN/CREATININE RATIO 18.3 (6.6-38.0); CALCIUM 9.4 MG/DL (8.5-10.1); CHLORIDE 106 MMOL/L (99-107); CREATININE 0.93 MG/DL (0.40-0.90); GLUCOSE 106 MG/DL (70-104); SODIUM 140 MMOL/L (135-145); TOTAL CARBON DIOXIDE 26.1 MMOL/L (24-32); eGFR 68 ML/MIN
[2021-09-26] MEDS ORDERED: iohexol 350MG/ML 100ml bottle IV ONE (04:04)
[2021-09-26 06:36] VITALS: BP 128/82
== END 2021-09-26 06:56 | disposition home or self-care (01) ==
LOC: ER 23:45
DX: R07.89 Other chest pain (principal); R06.02 Shortness of breath; I10 Essential (primary) hypertension; K21.9 Gastro-esophageal reflux disease without esophagitis; G89.29 Other chronic pain; F41.9 Anxiety disorder, unspecified; F31.9 Bipolar disorder, unspecified; F20.9 Schizophrenia, unspecified; F12.90 Cannabis use, unspecified, uncomplicated; F15.90 Other stimulant use, unspecified, uncomplicated; F11.90 Opioid use, unspecified, uncomplicated; Z87.440 Personal history of urinary (tract) infections; Z86.14 Personal history of Methicillin resistant Staphylococcus aureus infection; Z98.890 Other specified postprocedural states; Z88.8 Allergy status to other drugs, medicaments and biological substances; Z79.899 Other long term (current) drug therapy
CPT/HCPCS: 36415; 71045; 71275; 80048; 84484; 85025; 85379; 93005; 99285; Q9967

== ENCOUNTER 2022-11-22 15:37 | Emergency (ER) | payer MEDICARE, MEDICAID ==
[~2022-11-22] VITALS: Ht 167.6 cm; Wt 90.7 kg
[2022-11-22 16:28] VITALS: BP 149/98
[2022-11-22] MEDS ORDERED: PENI250T2 PO (17:06)
[2022-11-22] MEDS ORDERED: NAPR-56 PO (17:06)
--- NOTE | 2022-11-22 17:30 | NUR ---
PT LEFT AMA AND REFUSED TO SIGN DISCHARGE PAPERWORK. PT REFUSED TO ALLOW RN TO PERFORM A DISCHARGE ASSESSMENT. RN EDUCATED PT THAT IF SHE LEAVES AND DOES NOT TAKE ANTIBIOTIC THAT HER INFECTION COULD GET WORSE. PT STATED "I ALREADY HAVE AN INFECTION".
== END 2022-11-22 17:57 | disposition home or self-care (01) ==
LOC: ER 15:38
DX: K08.89 Other specified disorders of teeth and supporting structures (principal); R22.0 Localized swelling, mass and lump, head; G89.29 Other chronic pain; M54.9 Dorsalgia, unspecified; F31.9 Bipolar disorder, unspecified; F20.9 Schizophrenia, unspecified; F12.10 Cannabis abuse, uncomplicated; F15.10 Other stimulant abuse, uncomplicated; Z79.899 Other long term (current) drug therapy; Z88.6 Allergy status to analgesic agent
CPT/HCPCS: 99283

== ENCOUNTER 2024-03-26 10:05 | Emergency (ER) | payer MEDICARE, MEDICAID | END 2024-03-26 11:35 | disposition left against medical advice (07) | LOC: ER 10:07 | DX: J11.1 Influenza due to unidentified influenza virus with other respiratory manifestations (principal); Z53.21 Procedure and treatment not carried out due to patient leaving prior to being seen by health care provider ==

== ENCOUNTER 2024-04-04 16:31 | Emergency (ER) | payer MEDICARE, MEDICAID ==
[2024-04-04] VITALS (10 sets, daily range): BP systolic 112–155; BP diastolic 66–100; PULSE 84–99; RESP 16–24; TEMP 98.7; O2SAT 97–100
[~2024-04-04] VITALS: Ht 167.6 cm; Wt 86.4 kg
[2024-04-04 17:24] LABS: BASOPHILS % (AUTO) 0.5 % (0-1); EOSINOPHILS % (AUTO) 0.3 % (0-6); HEMATOCRIT 45.8 % (35.0-45.0); HEMOGLOBIN 15.2 g/dl (12.0-16.0); LYMPHOCYTES # (AUTO) 1.1 X10'3 (1.1-4.8); LYMPHOCYTES % (AUTO) 15.9 % (21-51); MEAN CORPUSCULAR HEMOGLOBIN 28.7 PG (27.0-31.0); MEAN CORPUSCULAR HGB CONC 33.2 g/dL (33.0-36.5); MEAN CORPUSCULAR VOLUME 86.7 FL (78-98); MEAN PLATELET VOLUME 8.3 FL (7.4-10.4); MONOCYTES # (AUTO) 0.4 X10'3 (0-0.9); MONOCYTES % (AUTO) 6.6 % (2-12); NEUTROPHILS # (AUTO) 5.1 X10'3 (1.8-7.7); NEUTROPHILS % (AUTO) 76.7 % (42-75); PLATELET COUNT 243 X10'3 (140-440); RED BLOOD COUNT 5.28 X10'6 (4.20-5.60); RED CELL DISTRIBUTION WIDTH 14.7 % (11.5-14.5); WHITE BLOOD COUNT 6.7 X10'3 (4.5-11.0)
[2024-04-04 17:38] LABS: ALANINE AMINOTRANSFERASE 18 U/L (12-78); ALBUMIN 3.5 G/DL (3.4-5.0); ALBUMIN/GLOBULIN RATIO 0.8 (1.1-1.5); ALKALINE PHOSPHATASE 71 IU/L (46-116); ANION GAP 9 (8-16); ASPARTATE AMINO TRANSFERASE 12 U/L (10-37); BILIRUBIN,TOTAL 0.5 MG/DL (0.1-1.0); BLOOD UREA NITROGEN 17 MG/DL (7-18); BUN/CREATININE RATIO 20.2 (10.0-20.0); CALCIUM 9.6 MG/DL (8.5-10.1); CHLORIDE 105 MMOL/L (99-107); CREATININE 0.84 MG/DL (0.40-0.90); GLUCOSE 110 MG/DL (70-104); POTASSIUM 3.7 MMOL/L (3.5-5.1); SODIUM 138 MMOL/L (135-145); TOTAL PROTEIN 7.9 G/DL (6.4-8.2); eCRCL 85 ML/MIN; eGFR 76 ML/MIN
[2024-04-04] MEDS ORDERED: fentaNYL/PF 50MCG/1 ML 2ML syringe ONE ×4 (18:27→19:59)
[2024-04-04] MEDS ORDERED: LIDOcaine 2% Viscous 15ml cup ONE (18:27)
[2024-04-04] MEDS ORDERED: MIDAZolam 1 MG/ML 5ML VIAL ONE ×2 (18:27→18:44)
[2024-04-04] MEDS ORDERED: diphenhydrAMINE 50 mg/ml inj ONE (18:32)
[2024-04-04] MEDS ORDERED: glucagon, human recombinant 1mg kit ONE (19:24)
[2024-04-04] MEDS ORDERED: epiNEPHrine 0.1mg/ml 10ml syringe ONE (19:24)
[2024-04-04] MEDS ORDERED: sevoflurane 250ml liquid IH ONE (19:40)
[2024-04-04] MEDS ORDERED: morphine 2 MG/ML inj. syringe IV PRN (19:55)
[2024-04-04] MEDS ORDERED: proCHLORperazine 10 MG/2 ml inj IV PRN (19:55)
[2024-04-04] MEDS ORDERED: morphine 4 MG/ML inj SYRINge IV PRN (19:55)
[2024-04-04] MEDS ORDERED: enalaprilat dihydrate 2.5mg/2ml vial IV PRN (19:55)
[2024-04-04] MEDS ORDERED: ondansetron/PF 4mg/2ml inj IV PRN (19:55)
[2024-04-04] MEDS ORDERED: labetalol 20mg/4ml (5mg/ml) syringe IV PRN (19:55)
[2024-04-04] MEDS ORDERED: ringers solution, lacted 1,000 ML IV SCH (19:55)
[2024-04-04] MEDS ORDERED: meperidine/PF 25mg/ml syringe IV PRN ×3 (19:55)
[2024-04-04] MEDS ORDERED: rocuronium 10mg/ml inj IV ONE (20:09)
[2024-04-04] MEDS ORDERED: LIDOcaine 2% (20mg/ml) 5ml vial ONE (20:09)
[2024-04-04] MEDS ORDERED: propofol inj 20 ML IV ONE (20:09)
[2024-04-04] MEDS ORDERED: sugammadex 200mg/2ml injection IV ONE (20:25)
== END 2024-04-04 22:12 | disposition short-term general hospital (02) ==
LOC: ER 16:32
DX: T18.2XXA Foreign body in stomach, initial encounter (principal); I10 Essential (primary) hypertension; K21.9 Gastro-esophageal reflux disease without esophagitis; G89.29 Other chronic pain; M54.9 Dorsalgia, unspecified; F41.9 Anxiety disorder, unspecified; F32.A Depression, unspecified; F12.90 Cannabis use, unspecified, uncomplicated; F15.90 Other stimulant use, unspecified, uncomplicated; F11.90 Opioid use, unspecified, uncomplicated; Z98.890 Other specified postprocedural states; Z88.8 Allergy status to other drugs, medicaments and biological substances; Z79.899 Other long term (current) drug therapy; W44.8XXA Other foreign body entering into or through a natural orifice, initial encounter; Y93.89 Activity, other specified; Y92.89 Other specified places as the place of occurrence of the external cause; Y99.8 Other external cause status
CPT/HCPCS: 36415; 43247; 71045; 74018; 80053; 85025; 99285; A4620; C1769; C1889; J1100; J1200; J2001; J2250; J2405; J2704; J3010; J3490; J7030; Z7512; Z7610; 99152; 99153; J0171; J1610

== ENCOUNTER 2024-04-20 11:58 | Emergency (ER) | payer MEDICARE, MEDICAID ==
[~2024-04-20] VITALS: Ht 167.6 cm; Wt 89.1 kg
[2024-04-20 13:41] LABS: BASOPHILS % (AUTO) 0.5 % (0-1); EOSINOPHILS # (AUTO) 0.1 X10'3 (0-0.9); EOSINOPHILS % (AUTO) 1.2 % (0-6); HEMATOCRIT 39.3 % (35.0-45.0); HEMOGLOBIN 13.1 g/dl (12.0-16.0); LYMPHOCYTES # (AUTO) 2.9 X10'3 (1.1-4.8); LYMPHOCYTES % (AUTO) 27.2 % (21-51); MEAN CORPUSCULAR HEMOGLOBIN 28.9 PG (27.0-31.0); MEAN CORPUSCULAR HGB CONC 33.3 g/dL (33.0-36.5); MEAN CORPUSCULAR VOLUME 86.8 FL (78-98); MONOCYTES % (AUTO) 9.4 % (2-12); NEUTROPHILS # (AUTO) 6.7 X10'3 (1.8-7.7); NEUTROPHILS % (AUTO) 61.7 % (42-75); PLATELET COUNT 284 X10'3 (140-440); RED BLOOD COUNT 4.52 X10'6 (4.20-5.60); RED CELL DISTRIBUTION WIDTH 14.9 % (11.5-14.5); WHITE BLOOD COUNT 10.8 X10'3 (4.5-11.0)
[2024-04-20 13:56] LABS: ALANINE AMINOTRANSFERASE 21 U/L (12-78); ALBUMIN 3.2 G/DL (3.4-5.0); ALBUMIN/GLOBULIN RATIO 0.9 (1.1-1.5); ALKALINE PHOSPHATASE 67 IU/L (46-116); ANION GAP 9 (8-16); ASPARTATE AMINO TRANSFERASE 12 U/L (10-37); BILIRUBIN,TOTAL 0.4 MG/DL (0.1-1.0); BLOOD UREA NITROGEN 23 MG/DL (7-18); BUN/CREATININE RATIO 21.7 (10.0-20.0); CALCIUM 8.9 MG/DL (8.5-10.1); CHLORIDE 103 MMOL/L (99-107); CREATININE 1.06 MG/DL (0.40-0.90); GLUCOSE 123 MG/DL (70-104); POTASSIUM 3.1 MMOL/L (3.5-5.1); SODIUM 139 MMOL/L (135-145); TOTAL CARBON DIOXIDE 26.7 MMOL/L (24-32); TOTAL PROTEIN 6.6 G/DL (6.4-8.2); eCRCL 67 ML/MIN; eGFR 58 ML/MIN
[2024-04-20 14:04] LABS: PRO BRAIN NATRIURETIC PEPTIDE 853 PG/ML (0-125)
[2024-04-20 15:08] LABS: URINE AMPHETAMINE SCREEN POSITIVE (Neg); URINE BARBITUATE SCREEN NEGATIVE (Neg); URINE BENZODIAZEPINES SCREEN POSITIVE (Neg); URINE CANNABINOID SCREEN NEGATIVE (Neg); URINE COCAINE SCREEN NEGATIVE (Neg); URINE METHADONE SCREEN NEGATIVE (Neg); URINE OPIATE SCREEN NEGATIVE (Neg); URINE PHENCYCLIDINE SCREEN NEGATIVE (Neg)
[2024-04-20] MEDS: LORazepam 2 mg/ml vial IV ONE (15:16)
[2024-04-20] MEDS: fentaNYL/PF 50MCG/1 ML 2ML syringe IV ONE (15:17)
[2024-04-20] MEDS: LIDOcaine 1% 30ml preserv. free vial IJ STA (15:55)
[2024-04-20] MEDS: potassium Cl 20 mEq SR tablet PO STA (18:15)
[2024-04-20] MEDS: metoclopramide 5 mg/ml inj IV ONE (18:15)
[2024-04-20] MEDS: HYDROcodone/acetaminophen 5mg/325mg tablet PO ONE (19:54)
[2024-04-20 19:55] VITALS: PULSE 114
[2024-04-20 20:51] LABS: TOTAL PROTEIN,CSF 51 MG/DL (15-45)
[2024-04-20 21:32] LABS: APPEARANCE,CSF CLEAR; CSF SUPERNATANT COLOR COLORLESS; CSF VOLUME 7 ML; TUBE# COUNTED 4
[2024-04-20 21:33] LABS: CSF RBC 3 /CU MM (0)
[2024-04-20 21:38] LABS: CSF WBC CT 0 /CU MM (0-5)
[2024-04-20 21:56] VITALS: BP 130/58; RESP 15; TEMP 99.1; O2SAT 100
[2024-04-25 11:56] LABS: RPR, QUANT. SEE COMMENTS
== END 2024-04-20 21:59 | disposition home or self-care (01) ==
LOC: ER 11:58
DX: H53.2 Diplopia (principal); I10 Essential (primary) hypertension; K21.9 Gastro-esophageal reflux disease without esophagitis; G89.29 Other chronic pain; M54.9 Dorsalgia, unspecified; F41.9 Anxiety disorder, unspecified; F32.A Depression, unspecified; F20.9 Schizophrenia, unspecified; F17.200 Nicotine dependence, unspecified, uncomplicated; F12.90 Cannabis use, unspecified, uncomplicated; F15.90 Other stimulant use, unspecified, uncomplicated; F11.90 Opioid use, unspecified, uncomplicated; A52.3 Neurosyphilis, unspecified; Z88.8 Allergy status to other drugs, medicaments and biological substances; Z79.899 Other long term (current) drug therapy; Z98.890 Other specified postprocedural states
CPT/HCPCS: 36415; 62270; 70450; 80053; 80305; 83880; 84157; 84484; 85025; 86592; 89051; 93005; 96374; 96375; 99285; J2060; J3010

== ENCOUNTER 2024-04-22 02:52 | Emergency (ER) | payer MEDICARE, MEDICAID ==
[~2024-04-22] VITALS: Ht 167.6 cm; Wt 92.6 kg
[2024-04-22 05:30] VITALS: BP 138/78; PULSE 100; RESP 14; TEMP 98; O2SAT 100
== END 2024-04-22 05:33 | disposition home or self-care (01) ==
LOC: ER 02:52
DX: T40.411A Poisoning by fentanyl or fentanyl analogs, accidental (unintentional), initial encounter (principal); I10 Essential (primary) hypertension; K21.9 Gastro-esophageal reflux disease without esophagitis; G89.29 Other chronic pain; M54.9 Dorsalgia, unspecified; F41.9 Anxiety disorder, unspecified; F32.A Depression, unspecified; F12.90 Cannabis use, unspecified, uncomplicated; F15.90 Other stimulant use, unspecified, uncomplicated; Z88.6 Allergy status to analgesic agent; Z79.899 Other long term (current) drug therapy; Y92.89 Other specified places as the place of occurrence of the external cause
CPT/HCPCS: 99284

== ENCOUNTER 2024-06-19 20:19 | Emergency (ER) | payer MEDICARE, MEDICAID ==
[~2024-06-19] VITALS: Ht 167.6 cm; Wt 90.9 kg
[2024-06-19 20:26] VITALS: BP 127/74; PULSE 89; TEMP 99.1; O2SAT 98
[2024-06-19] MEDS ORDERED: AMOX-419 PO (21:33)
[2024-06-19] MEDS: ondansetron 4mg rapidly disintigrating tab PO ONE (21:41)
[2024-06-19] MEDS: amox tr/potassium clavulanate 875/125mg TAB PO ONE (21:41)
[2024-06-19] MEDS: acetaminophen 325mg tablet PO ONE (21:42)
[2024-06-19 21:51] VITALS: RESP 20
== END 2024-06-19 21:53 | disposition home or self-care (01) ==
LOC: ER 20:20
DX: K04.7 Periapical abscess without sinus (principal); I10 Essential (primary) hypertension; K21.9 Gastro-esophageal reflux disease without esophagitis; G89.29 Other chronic pain; M54.9 Dorsalgia, unspecified; F41.9 Anxiety disorder, unspecified; F32.A Depression, unspecified; F20.9 Schizophrenia, unspecified; F12.90 Cannabis use, unspecified, uncomplicated; F15.90 Other stimulant use, unspecified, uncomplicated; F11.90 Opioid use, unspecified, uncomplicated; Z88.6 Allergy status to analgesic agent; Z79.899 Other long term (current) drug therapy
CPT/HCPCS: 99283

== ENCOUNTER 2024-07-01 00:33 | Emergency (ER) | payer MEDICARE, MEDICAID ==
[~2024-07-01] VITALS: Ht 167.6 cm; Wt 89.7 kg
[2024-07-01 01:52] VITALS: BP 132/87; PULSE 99; RESP 16; TEMP 98; O2SAT 99
[2024-07-01] MEDS: ketorolac trometh 15mg/ml vial 15 MG/ML ML IV ONE (03:05)
[2024-07-01] MEDS: metoclopramide 5 mg/ml inj IV ONE (03:05)
[2024-07-01] MEDS: diphenhydrAMINE 50 mg/ml inj IV ONE (03:05)
[2024-07-01] MEDS: normal saline 1000ML IV soln IVB ONE (03:06)
== END 2024-07-01 03:08 | disposition left against medical advice (07) ==
LOC: ER 00:35
DX: R51.9 Headache, unspecified (principal); R11.2 Nausea with vomiting, unspecified; F12.90 Cannabis use, unspecified, uncomplicated; F20.9 Schizophrenia, unspecified; F31.9 Bipolar disorder, unspecified; G89.29 Other chronic pain; I10 Essential (primary) hypertension; K21.9 Gastro-esophageal reflux disease without esophagitis; F15.90 Other stimulant use, unspecified, uncomplicated; Z87.440 Personal history of urinary (tract) infections; Z88.6 Allergy status to analgesic agent
CPT/HCPCS: 99281; J7030

== ENCOUNTER 2024-10-09 14:00 | Emergency (ER) | payer MEDICARE, MEDICAID ==
[~2024-10-09] VITALS: Ht 167.6 cm; Wt 90.9 kg
[2024-10-09] MEDS: LIDOcaine 1% W/epiNEPHrine 1:100,000 20ml vial IJ ONE (14:46)
[2024-10-09 15:59] VITALS: BP 166/127; PULSE 91; RESP 18; TEMP 97.7; O2SAT 100
== END 2024-10-09 16:00 | disposition home or self-care (01) ==
LOC: ER 14:01 → EEVIPCON 14:01 → ER 16:00
DX: T18.5XXA Foreign body in anus and rectum, initial encounter (principal); S51.812A Laceration without foreign body of left forearm, initial encounter; F20.9 Schizophrenia, unspecified; F31.9 Bipolar disorder, unspecified; I10 Essential (primary) hypertension; K21.9 Gastro-esophageal reflux disease without esophagitis; F41.9 Anxiety disorder, unspecified; F12.90 Cannabis use, unspecified, uncomplicated; F11.90 Opioid use, unspecified, uncomplicated; Z79.82 Long term (current) use of aspirin; W44.9XXA Unspecified foreign body entering into or through a natural orifice, initial encounter; Y93.89 Activity, other specified; Y92.89 Other specified places as the place of occurrence of the external cause; Y99.8 Other external cause status
CPT/HCPCS: 12004; 71045; 74018; 74176; 99284; A6258; A6402; A6446; J7030; A6449

== ENCOUNTER 2024-11-11 12:59 | Emergency (ER) | payer MEDICAID, MEDICARE, OTHER ==
[~2024-11-11] VITALS: Ht 167.6 cm; Wt 90.9 kg
[2024-11-11 13:03] VITALS: TEMP 100
[2024-11-11 15:15] LABS: BASOPHILS # (AUTO) 0.1 X10'3 (0-0.2); BASOPHILS % (AUTO) 0.6 % (0-1); EOSINOPHILS # (AUTO) 0.1 X10'3 (0-0.9); HEMATOCRIT 39.1 % (35.0-45.0); HEMOGLOBIN 12.8 g/dl (12.0-16.0); LYMPHOCYTES # (AUTO) 1.8 X10'3 (1.1-4.8); LYMPHOCYTES % (AUTO) 17.7 % (21-51); MEAN CORPUSCULAR HEMOGLOBIN 28.3 PG (27.0-31.0); MEAN CORPUSCULAR HGB CONC 32.6 g/dL (33.0-36.5); MEAN CORPUSCULAR VOLUME 86.7 FL (78-98); MEAN PLATELET VOLUME 7.8 FL (7.4-10.4); MONOCYTES # (AUTO) 0.5 X10'3 (0-0.9); MONOCYTES % (AUTO) 5.6 % (2-12); NEUTROPHILS # (AUTO) 7.4 X10'3 (1.8-7.7); NEUTROPHILS % (AUTO) 75.1 % (42-75); PLATELET COUNT 256 X10'3 (140-440); RED BLOOD COUNT 4.51 X10'6 (4.20-5.60); RED CELL DISTRIBUTION WIDTH 16.4 % (11.5-14.5); WHITE BLOOD COUNT 9.9 X10'3 (4.5-11.0)
[2024-11-11] MEDS: normal saline 1000ml 1,000 ML IV ONE (15:18)
[2024-11-11 15:19] LABS: URINE AMPHETAMINE SCREEN NEGATIVE (Neg); URINE BARBITUATE SCREEN NEGATIVE (Neg); URINE BENZODIAZEPINES SCREEN NEGATIVE (Neg); URINE CANNABINOID SCREEN NEGATIVE (Neg); URINE COCAINE SCREEN NEGATIVE (Neg); URINE METHADONE SCREEN NEGATIVE (Neg); URINE OPIATE SCREEN NEGATIVE (Neg); URINE PHENCYCLIDINE SCREEN NEGATIVE (Neg)
[2024-11-11 15:25] LABS: ANION GAP 7 (8-16); BLOOD UREA NITROGEN 13 MG/DL (7-18); BUN/CREATININE RATIO 14.9 (10.0-20.0); CALCIUM 8.6 MG/DL (8.5-10.1); CHLORIDE 107 MMOL/L (99-107); CREATININE 0.87 MG/DL (0.40-0.90); ETHANOL < 10 MG/DL (<10); GLUCOSE 74 MG/DL (70-104); POTASSIUM 4.1 MMOL/L (3.5-5.1); SODIUM 143 MMOL/L (135-145); TOTAL CARBON DIOXIDE 28.8 MMOL/L (24-32); eCRCL 81 ML/MIN; eGFR 72 ML/MIN
[2024-11-11 15:27] LABS: ACETAMINOPHEN < 2.0 UG/ML (10-30)
[2024-11-11 16:10] VITALS: BP 109/62; PULSE 94; RESP 16; O2SAT 98
== END 2024-11-11 16:34 | disposition home or self-care (01) ==
LOC: EEVIPCON 12:59 → ER 12:59
DX: T40.411A Poisoning by fentanyl or fentanyl analogs, accidental (unintentional), initial encounter (principal); F20.9 Schizophrenia, unspecified; F41.9 Anxiety disorder, unspecified; F31.9 Bipolar disorder, unspecified; I10 Essential (primary) hypertension; F12.90 Cannabis use, unspecified, uncomplicated; F15.90 Other stimulant use, unspecified, uncomplicated; F11.90 Opioid use, unspecified, uncomplicated; Z88.6 Allergy status to analgesic agent; Z98.890 Other specified postprocedural states; Y92.89 Other specified places as the place of occurrence of the external cause
CPT/HCPCS: 36415; 80048; 80305; 80320; 80329; 82948; 85025; 93005; 96360; 99284; J7030

== ENCOUNTER 2025-02-08 14:58 | Emergency (ER) | payer MEDICARE, MEDICAID ==
[~2025-02-08] VITALS: Ht 167.6 cm; Wt 78.8 kg
[2025-02-08 15:02] VITALS: BP 120/84; PULSE 106; RESP 15; TEMP 98.7; O2SAT 98
--- NOTE | 2025-02-08 15:05 | Physician Documentation ---
History of Present Illness ~ General Stated Complaint: MEDICAL CLEARANCE Time Seen by MD: 15:00 Primary Medical Doctor: [facility] AT [facility] Source: patient Mode of Arrival: POV Exam Limitations: no limitations History of Present Illness Initial Comments 39-year-old female any are for medical clearance for recovery treatment program. Patient was in [place] and used fentanyl this morning now going to [facility] Medication Reconciliation Allergies: Coded Allergies: aspirin (Verified Allergy, Mild, RASH-, 02/08/25) TAKES IBUPROFEN AT HOME Scheduled Buspirone Hcl* (Buspar*), 1 TAB PO QAM, (Reported) Buspirone Hcl* (Buspar*), 2 TAB PO QPM, (Reported) Past Medical History Past Medical History: Arrhythmia, Hypertension, *GI/HEPATOBILIARY*, GERD, UTI, Chronic Pain, Chronic Back Pain, MRSA Abscess, Anxiety, Bipolar, Depression, Schizophrenia Past Surgical History: abdominal surgery, , other Other Past Surgical History: Open heart surgery - ventricular septal defect Patient History: Patient reports no known family medical history. Alcohol Use: None Drug Use: marijuana, methamphetamine, heroin Lives with: Family Lives In: Other Occupation: disabled Review of Systems All Other Systems at this time: Reviewed and Negative Physical Exam Physical Exam General Appearance: alert, WD/WN, no apparent distress Head: normal inspection Respiratory: lungs clear, normal breath sounds, no respiratory distress Chest: no accessory muscle use, chest non-tender Cardiovascular: normal peripheral pulses, regular rate, rhythm, no murmur; No: JVD Medical Decision Making Findings Med clearance for recovery Departure Time of Disposition: 15:05 Disposition: 01 HOME / SELF CARE / HOMELESS Impression: Primary Impression: Encounter for medical screening examination Condition: Stable Discharge Instructions: General Discharge Instructions Additional Instructions: Patient is medically cleared for recovery program Referrals: NO PRIMARY CARE PROVIDER (PCP) Education Educated: Patient Educated regarding: diagnosis, treatment, need for follow up Signature Scribe Signature: No scribe Attestation: The note accurately reflects work and decisions made by me.Candice CONWAY 02/08/25 15:02 CANDICE DAHL NP Feb 08, 2025 15:05 PAYTON WILLS MD Feb 13, 2025 15:08
== END 2025-02-08 15:09 | disposition home or self-care (01) ==
LOC: ER 14:59
DX: Z13.89 Encounter for screening for other disorder (principal); F20.9 Schizophrenia, unspecified; F31.9 Bipolar disorder, unspecified; I10 Essential (primary) hypertension; K21.9 Gastro-esophageal reflux disease without esophagitis; F41.9 Anxiety disorder, unspecified; F12.90 Cannabis use, unspecified, uncomplicated; Z88.6 Allergy status to analgesic agent; F15.90 Other stimulant use, unspecified, uncomplicated; F11.90 Opioid use, unspecified, uncomplicated
CPT/HCPCS: 99281; 99282

== ENCOUNTER 2025-02-22 03:18 | Emergency (ER) | payer MEDICARE, MEDICAID ==
[~2025-02-22] VITALS: Ht 165.1 cm; Wt 90.2 kg
[2025-02-22 03:25] VITALS: BP 153/100; PULSE 91; TEMP 97.5; O2SAT 96
[2025-02-22 03:41] VITALS: RESP 16
--- NOTE | 2025-02-22 03:56 | Physician Documentation ---
History of Present Illness ~ Chief Complaint: Abdominal Pain Stated Complaint: ABDOMINAL PAIN Time Seen by MD: 03:55 Primary Medical Doctor: NONE Mode of Arrival: POV HPI Patient presents to the emergency rooms problems with constipation. She is abusing opioids at this time. She has tried multiple [id number] remedies without affect. She reports that she is drinking plenty of water. Medication Reconciliation Allergies: Coded Allergies: aspirin (Verified Allergy, Mild, RASH-, 02/22/25) TAKES IBUPROFEN AT HOME Scheduled Buspirone Hcl* (Buspar*), 1 TAB PO QAM, (Reported) Buspirone Hcl* (Buspar*), 2 TAB PO QPM, (Reported) Past Medical History Past Medical History: Arrhythmia, Hypertension, *GI/HEPATOBILIARY*, GERD, UTI, Chronic Pain, Chronic Back Pain, MRSA Abscess, Anxiety, Bipolar, Depression, Schizophrenia Past Surgical History: abdominal surgery, , other Other Past Surgical History: Open heart surgery - ventricular septal defect Patient History: Patient reports no known family medical history. Alcohol Use: None Drug Use: marijuana, methamphetamine, heroin Lives with: Family Lives In: Other Occupation: disabled Review of Systems ROS All review of systems negative except as per HPI Physical Exam Vital Signs: Temperature: 97.5, Source: Temporal, Heart Rate: 91, Respiratory Rate: 16, BP: 153/100, Pulse Oximetry: 96, Weight: 90.200 Oxygen Flow Rate: 0 Physical Exam General: Patient is awake, alert, oriented x4 in no acute distress Head: Normocephalic and atraumatic. Eyes: Conjunctival normal. EOMI. PERRL. ENT: Mucous membranes moist. Neck: Supple, trachea is midline. Chest: Clear to auscultation bilaterally without rales, rhonchi, or wheezes. There is no accessory muscle use or retractions. Cardiac: RRR without murmurs, gallops, or rubs. Abd: Soft, nondistended, nontender, with normoactive bowel sounds. No guarding, rebound, or rigidity. Progress Results/Orders Results/Orders Vital Signs 02/22/25 02/22/25 03:25 03:41 Temp 97.5 Pulse 91 Resp 16 16 B/P (MAP) 153/100 Pulse Ox 96 O2 Flow Rate 0 Medical Decision Making Findings Patient presents to the emergency room with chief complaint of constipation. Physical exam is reassuring. Patient is frustrated and I offered her Relistor and after explaining what it does she says she does not want an injection. I stated I will could write her additional constipation medications and she became upset and felt I was not helping her. I do not feel emergent labs or imaging is necessary. Vital signs stable. Departure Disposition: HOME / SELF CARE / HOMELESS Impression: Primary Impression: Constipation Condition: Stable Discharge Instructions: Constipation, Adult, [id number] Additional Instructions: Increase constipation medications until having bowel movements. Abstain from opioids Referrals: NO PRIMARY CARE PROVIDER (PCP) Education Educated: Patient Educated regarding: diagnosis, treatment Signature Scribe Signature: No scribe Attestation: The note accurately reflects work and decisions made by me.Eder Farrell MD 02/22/25 04:02 EDER FARRELL MD Feb 22, 2025 03:56
== END 2025-02-22 04:04 | disposition left against medical advice (07) ==
LOC: ER 03:19
DX: K59.00 Constipation, unspecified (principal); F20.9 Schizophrenia, unspecified; F31.9 Bipolar disorder, unspecified; I10 Essential (primary) hypertension; F41.9 Anxiety disorder, unspecified; F11.10 Opioid abuse, uncomplicated; F12.90 Cannabis use, unspecified, uncomplicated; F15.90 Other stimulant use, unspecified, uncomplicated; F11.90 Opioid use, unspecified, uncomplicated; Z88.6 Allergy status to analgesic agent
CPT/HCPCS: 99282